=== PATIENT | female | born 1960 | race Caucasian/White ===

== ENCOUNTER 2016-07-10 16:24 | Inpatient (IN) | payer OTHER ==
[~2016-07-10] VITALS: Ht 157.5 cm; Wt 67.3 kg
[~2016-07-10 16:24] MED LIST: GABA-531 PO
[2016-07-10 17:28] LABS: BASOPHILS % (AUTO) 0.1 % (0.0-2.0); EOSINOPHILS # (AUTO) 0.03 K/uL (0.00-0.70); EOSINOPHILS % (AUTO) 0.33 % (1.0-6.0); HEMATOCRIT 43.7 % (36-46); MEAN CORPUSCULAR HEMOGLOBIN 32.6 pg (26.0-34.0); MEAN CORPUSCULAR HGB CONC 34.3 G/dL (31.0-37.0); MEAN CORPUSCULAR VOLUME 95 fL (80-100); MONOCYTES # (AUTO) 0.3 K/uL (0.1-1.0); MONOCYTES % (AUTO) 3.6 % (2.0-9.0); NEUTROPHILS # (AUTO) 6.4 K/uL (1.8-7.7); NEUTROPHILS % (AUTO) 83.1 % (40.0-70.0); RED CELL DISTRIBUTION WIDTH 15.2 % (11.5-14.5); WHITE BLOOD COUNT (AUTO) 7.7 K/uL (4.5-11.0)
[2016-07-10] MEDS ORDERED: SODIUM CHLORIDE 0.9% 1,000 ML IV ONE (17:30)
[2016-07-10 17:41] LABS: GLUCOSE,POINT OF CARE 147 MG/DL (70-110)
[2016-07-10 17:55] LABS: PLATELET COUNT (AUTO) 81 K/uL (150-450)
[2016-07-10] MEDS ORDERED: DILTIAZEM HCL 5 MG/ML 5 ML VIAL IVP ONE ×2 (18:00)
[2016-07-10 18:12] LABS: ANION GAP 19 mmol/L (8-16); CARBON DIOXIDE 23 mmol/L (22-29); CHLORIDE 95 mmol/L (98-107); CREATININE 0.68 mg/dL (0.60-1.30); GLOMERULAR FILTR. RATE CALC > 60 mL/min (>60); POTASSIUM 3.1 mmol/L (3.5-5.1); SODIUM SERUM 137 mmol/L (136-145); UREA NITROGEN, BLOOD 7 mg/dL (7-18)
[2016-07-10 18:17] LABS: ALANINE AMINOTRANSFERASE 61 U/L (12-78); ALBUMIN 3.8 g/dL (3.4-5.0); ASPARTATE AMINOTRANSFERASE 129 U/L (15-37); BILIRUBIN,TOTAL 1.2 mg/dL (0.1-1.0); TOTAL PROTEIN, SERUM 7.7 g/dL (6.4-8.2)
[2016-07-10] MEDS ORDERED: POTASSIUM CHLORIDE 20 MEQ ER TABLET PO ONE (18:30)
[2016-07-10] MEDS ORDERED: ONDANSETRON HCL 4 MG/2 ML VIAL IVP ONE (18:45)
[2016-07-10 19:45] LABS: APPEARANCE,URINE CLEAR (CLEAR); GLUCOSE, URINE (UA) NEGATIVE (NEGATIVE); KETONES,URINE 40 mg/dL (NEGATIVE); LEUKOCYTE ESTERASE ,URINE NEGATIVE (NEGATIVE); OCCULT BLOOD,URINE NEGATIVE (NEGATIVE); PH,URINE 6.5 (5.0-8.0); PROTEIN,URINE POS 1+ (NEGATIVE)
[2016-07-10] MEDS ORDERED: ASPIRIN 81 MG CHEWABLE TABLET PO ONE (19:45)
[2016-07-10] MEDS ORDERED: LABETALOL HCL 5 MG/ML 20 ML VIAL IVP ONE (19:45)
[2016-07-10 19:55] LABS: HYALINE CASTS, URINE 0-2 /LPF (None Seen)
[2016-07-10 19:56] LABS: RBC,URINE 0-2 /HPF (0-2); SQUAMOUS EPITHELIAL CELL,UR Moderate /LPF (None Seen); WBC,URINE 0-2 /HPF (0-5)
[2016-07-10] MEDS ORDERED: 0.9% SODIUM CHLORIDE 10 ML SYRINGE IVP PRN (20:15)
[2016-07-10] MEDS ORDERED: ONDANSETRON HCL 4 MG/2 ML VIAL IVP PRN (20:15)
[2016-07-10] MEDS ORDERED: ACETAMINOPHEN 325 MG TABLET PO PRN (20:15)
[2016-07-10 21:38] VITALS: BP 132/77
[2016-07-10] MEDS ORDERED: TEMAZEPAM 15 MG CAPSULE PO ONE (23:30)
[2016-07-10 23:56] VITALS: BP 115/70
[2016-07-11] MEDS ORDERED: ChlordiazePOXIDE HCL 25 MG CAPSULE PO PRN (02:45)
[2016-07-11] MEDS ORDERED: 0.9% SODIUM CHLORIDE 10 ML SYRINGE IVP PRN (03:00)
[2016-07-11] MEDS ORDERED: MAGNESIUM HYDROXIDE SUSPENSION 30 ML UDCUP PO PRN (03:00)
[2016-07-11] MEDS ORDERED: ACETAMINOPHEN 325 MG TABLET PO PRN (03:00)
[2016-07-11 04:45] VITALS: BP 121/72
[2016-07-11] MEDS: DOCUSATE SODIUM 100 MG CAPSULE PO SCH ×3 (05:02→20:27)
[2016-07-11 07:40] VITALS: BP 122/70
[2016-07-11 08:17] LABS: ANION GAP 10 mmol/L (8-16); CALCIUM, TOTAL 8.8 mg/dL (8.8-10.5); CARBON DIOXIDE 30 mmol/L (22-29); CHLORIDE 96 mmol/L (98-107); CREATININE 0.56 mg/dL (0.60-1.30); GLOMERULAR FILTR. RATE CALC > 60 mL/min (>60); POTASSIUM 3.2 mmol/L (3.5-5.1); SODIUM SERUM 136 mmol/L (136-145); UREA NITROGEN, BLOOD 9 mg/dL (7-18)
[2016-07-11] MEDS: GABAPENTIN 300 MG CAPSULE PO SCH (08:29)
[2016-07-11] MEDS: MULTIVITAMINS, THERAPEUTIC TABLET PO SCH (08:30)
[2016-07-11] MEDS: FOLIC ACID 1 MG TABLET PO SCH (08:30)
[2016-07-11] MEDS: THIAMINE HCL 100 MG TABLET PO SCH (08:30)
[2016-07-11] MEDS: PANTOPRAZOLE SODIUM 40 MG/VIAL IVP SCH (08:30)
[2016-07-11] MEDS ORDERED: POTASSIUM CHLORIDE 20 MEQ ER TABLET PO ONE ×2 (10:15→12:15)
[2016-07-11] MEDS: METOPROLOL SUCCINATE 50 MG ER TABLET PO SCH (10:34)
[2016-07-11] MEDS: OxyCODONE HCL/ACETAMINOPHEN 5-325 MG TABLET PO PRN ×3 (10:34→22:19)
[2016-07-11 11:34] VITALS: BP 115/85
[2016-07-11] MEDS: ONDANSETRON HCL 4 MG/2 ML VIAL IVP PRN ×2 (13:09→18:38)
[2016-07-11 15:40] VITALS: BP 135/85
[2016-07-11 19:38] VITALS: BP 116/70
[2016-07-11 23:35] VITALS: BP 121/72
[2016-07-12] MEDS ORDERED: HALOPERIDOL LACTATE 5 MG/ML VIAL ONE (04:15)
[2016-07-12] MEDS ORDERED: LORazepam 2 MG/ML VIAL IVP PRN (04:15)
[2016-07-12 04:16] VITALS: BP 127/61
[2016-07-12] MEDS: HALOPERIDOL LACTATE 5 MG/ML VIAL IM PRN ×2 (04:20→17:52)
[2016-07-12] MEDS ORDERED: ChlordiazePOXIDE HCL 10 MG CAPSULE PO ONE (04:30)
[2016-07-12] MEDS ORDERED: ChlordiazePOXIDE HCL 25 MG CAPSULE PO PRN (07:00)
[2016-07-12 08:31] VITALS: BP 131/86
[2016-07-12 08:35] LABS: BASOPHILS # (AUTO) 0.03 K/uL (0.00-0.20); BASOPHILS % (AUTO) 0.4 % (0.0-2.0); EOSINOPHILS # (AUTO) 0.14 K/uL (0.00-0.70); EOSINOPHILS % (AUTO) 2.05 % (1.0-6.0); HEMATOCRIT 41.7 % (36-46); HEMOGLOBIN 14.1 g/dL (12.0-16.0); LYMPHOCYTES # (AUTO) 1.5 K/uL (1.0-4.8); MEAN CORPUSCULAR HEMOGLOBIN 32.3 pg (26.0-34.0); MEAN CORPUSCULAR HGB CONC 33.8 G/dL (31.0-37.0); MEAN CORPUSCULAR VOLUME 96 fL (80-100); MONOCYTES # (AUTO) 0.4 K/uL (0.1-1.0); MONOCYTES % (AUTO) 5.9 % (2.0-9.0); NEUTROPHILS # (AUTO) 4.9 K/uL (1.8-7.7); NEUTROPHILS % (AUTO) 70.7 % (40.0-70.0); PLATELET COUNT (AUTO) 73 K/uL (150-450); RED BLOOD CELL COUNT(AUTO) 4.36 MIL/uL (4.00-5.20); RED CELL DISTRIBUTION WIDTH 15.5 % (11.5-14.5); WHITE BLOOD COUNT (AUTO) 6.9 K/uL (4.5-11.0)
[2016-07-12 09:00] LABS: ALANINE AMINOTRANSFERASE 53 U/L (12-78); ALBUMIN 3.5 g/dL (3.4-5.0); ANION GAP 12 mmol/L (8-16); ASPARTATE AMINOTRANSFERASE 95 U/L (15-37); CALCIUM, TOTAL 9.5 mg/dL (8.8-10.5); CARBON DIOXIDE 26 mmol/L (22-29); CHLORIDE 95 mmol/L (98-107); CREATININE 0.65 mg/dL (0.60-1.30); GLOMERULAR FILTR. RATE CALC > 60 mL/min (>60); POTASSIUM 3.8 mmol/L (3.5-5.1); SODIUM SERUM 133 mmol/L (136-145); TOTAL PROTEIN, SERUM 7.3 g/dL (6.4-8.2); UREA NITROGEN, BLOOD 7 mg/dL (7-18)
[2016-07-12] MEDS ORDERED: MAGNESIUM SULFATE 4 GM/WATER 100 ML IV ONE (09:45)
[2016-07-12] MEDS: ChlordiazePOXIDE HCL 25 MG CAPSULE PO SCH ×3 (10:33→16:33)
[2016-07-12] MEDS: GABAPENTIN 300 MG CAPSULE PO SCH ×2 (10:34→21:31)
[2016-07-12] MEDS: MULTIVITAMINS, THERAPEUTIC TABLET PO SCH (10:34)
[2016-07-12] MEDS: THIAMINE HCL 100 MG TABLET PO SCH (10:34)
[2016-07-12] MEDS: METOPROLOL SUCCINATE 50 MG ER TABLET PO SCH (10:34)
[2016-07-12] MEDS: DOCUSATE SODIUM 100 MG CAPSULE PO SCH ×2 (10:34→21:31)
[2016-07-12] MEDS: FOLIC ACID 1 MG TABLET PO SCH (10:34)
[2016-07-12 12:04] VITALS: BP 118/79
[2016-07-12] MEDS ORDERED: SODIUM CHLORIDE 0.9% 250 ML IV ONE (12:29)
[2016-07-12] MEDS: PANTOPRAZOLE SODIUM 40 MG/VIAL IVP SCH (12:42)
[2016-07-12 16:28] VITALS: BP 134/85
[2016-07-12] MEDS ORDERED: ChlordiazePOXIDE HCL 25 MG CAPSULE PO SCH (19:45)
[2016-07-12] MEDS ORDERED: MAGNESIUM OXIDE 400 MG TABLET PO ONE (21:30)
[2016-07-12] MEDS: LORazepam 2 MG/ML VIAL IM PRN (23:18)
[2016-07-13] MEDS ORDERED: HALOPERIDOL LACTATE 5 MG/ML VIAL IM PRN
[2016-07-13 00:38] VITALS: BP 130/82
[2016-07-13] MEDS ORDERED: ChlordiazePOXIDE HCL 10 MG CAPSULE PO PRN (04:23)
[2016-07-13] MEDS: LORazepam 2 MG/ML VIAL IM PRN (05:20)
[2016-07-13 08:07] VITALS: BP 106/65
[2016-07-13] MEDS: PANTOPRAZOLE SODIUM 40 MG/VIAL IVP SCH (09:00)
[2016-07-13] MEDS: GABAPENTIN 300 MG CAPSULE PO SCH ×2 (11:27→20:14)
[2016-07-13] MEDS: MAGNESIUM OXIDE 400 MG TABLET PO SCH (11:28)
[2016-07-13] MEDS: THIAMINE HCL 100 MG TABLET PO SCH (11:28)
[2016-07-13] MEDS: METOPROLOL SUCCINATE 50 MG ER TABLET PO SCH (11:28)
[2016-07-13] MEDS: MULTIVITAMINS, THERAPEUTIC TABLET PO SCH (11:28)
[2016-07-13] MEDS: ChlordiazePOXIDE HCL 25 MG CAPSULE PO SCH ×2 (11:28→17:32)
[2016-07-13] MEDS: FOLIC ACID 1 MG TABLET PO SCH (11:28)
[2016-07-13 11:29] VITALS: BP 115/76
[2016-07-13] MEDS: DOCUSATE SODIUM 100 MG CAPSULE PO SCH ×2 (11:29→20:14)
[2016-07-13] MEDS: ChlordiazePOXIDE HCL 10 MG CAPSULE PO PRN ×2 (14:47→20:15)
[2016-07-13] MEDS ORDERED: MAGNESIUM SULFATE 2 GM in DEXTROSE 5%-WATER 50 ML IV PRN (15:30)
[2016-07-13] MEDS ORDERED: MAGNESIUM SULFATE 4 GM/WATER 100 ML IV PRN (15:30)
[2016-07-13 17:10] VITALS: BP 104/74
[2016-07-13] MEDS: MAGNESIUM OXIDE 400 MG TABLET PO PRN ×2 (17:32→20:14)
[2016-07-13 19:39] VITALS: BP 122/70
[2016-07-13] MEDS: OxyCODONE HCL/ACETAMINOPHEN 5-325 MG TABLET PO PRN (21:09)
[2016-07-14] VITALS (8 sets, daily range): BP systolic 93–108; BP diastolic 58–73
[2016-07-14] MEDS: MAGNESIUM OXIDE 400 MG TABLET PO PRN ×4 (00:07→20:06)
[2016-07-14] MEDS: ChlordiazePOXIDE HCL 25 MG CAPSULE PO SCH (00:08)
[2016-07-14] MEDS ORDERED: ChlordiazePOXIDE HCL 10 MG CAPSULE PO PRN (07:00)
[2016-07-14 07:52] LABS: BASOPHILS # (AUTO) 0.02 K/uL (0.00-0.20); BASOPHILS % (AUTO) 0.3 % (0.0-2.0); EOSINOPHILS # (AUTO) 0.15 K/uL (0.00-0.70); EOSINOPHILS % (AUTO) 2.69 % (1.0-6.0); HEMATOCRIT 39.8 % (36-46); HEMOGLOBIN 13.7 g/dL (12.0-16.0); LYMPHOCYTES # (AUTO) 2.1 K/uL (1.0-4.8); MEAN CORPUSCULAR HEMOGLOBIN 32.9 pg (26.0-34.0); MEAN CORPUSCULAR HGB CONC 34.4 G/dL (31.0-37.0); MEAN CORPUSCULAR VOLUME 96 fL (80-100); MONOCYTES # (AUTO) 0.6 K/uL (0.1-1.0); MONOCYTES % (AUTO) 11.1 % (2.0-9.0); NEUTROPHILS # (AUTO) 2.6 K/uL (1.8-7.7); NEUTROPHILS % (AUTO) 47.9 % (40.0-70.0); PLATELET COUNT (AUTO) 104 K/uL (150-450); RED BLOOD CELL COUNT(AUTO) 4.16 MIL/uL (4.00-5.20); RED CELL DISTRIBUTION WIDTH 15.3 % (11.5-14.5); WHITE BLOOD COUNT (AUTO) 5.5 K/uL (4.5-11.0)
[2016-07-14 08:05] LABS: ALANINE AMINOTRANSFERASE 76 U/L (12-78); ALBUMIN 3.1 g/dL (3.4-5.0); ANION GAP 7 mmol/L (8-16); ASPARTATE AMINOTRANSFERASE 138 U/L (15-37); BILIRUBIN,TOTAL 0.6 mg/dL (0.1-1.0); CALCIUM, TOTAL 9.4 mg/dL (8.8-10.5); CARBON DIOXIDE 29 mmol/L (22-29); CHLORIDE 98 mmol/L (98-107); CREATININE 0.64 mg/dL (0.60-1.30); GLOMERULAR FILTR. RATE CALC > 60 mL/min (>60); SODIUM SERUM 134 mmol/L (136-145); TOTAL PROTEIN, SERUM 7.1 g/dL (6.4-8.2); UREA NITROGEN, BLOOD 8 mg/dL (7-18)
[2016-07-14] MEDS ORDERED: POTASSIUM CHL 10 MEQ/WATER 50 ML IV PRN (08:30)
[2016-07-14] MEDS ORDERED: POTASSIUM CHLORIDE 20 MEQ ER TABLET PO PRN (08:30)
[2016-07-14] MEDS ORDERED: ChlordiazePOXIDE HCL 25 MG CAPSULE PO SCH (09:00)
[2016-07-14] MEDS ORDERED: ChlordiazePOXIDE HCL 10 MG CAPSULE PO SCH (09:00)
[2016-07-14] MEDS: THIAMINE HCL 100 MG TABLET PO SCH (09:19)
[2016-07-14] MEDS: PANTOPRAZOLE SODIUM 40 MG/VIAL IVP SCH (09:19)
[2016-07-14] MEDS: METOPROLOL SUCCINATE 50 MG ER TABLET PO SCH (09:19)
[2016-07-14] MEDS: GABAPENTIN 300 MG CAPSULE PO SCH ×2 (09:19→20:06)
[2016-07-14] MEDS: MULTIVITAMINS, THERAPEUTIC TABLET PO SCH (09:19)
[2016-07-14] MEDS: FOLIC ACID 1 MG TABLET PO SCH (09:20)
[2016-07-14] MEDS: MAGNESIUM OXIDE 400 MG TABLET PO SCH (09:20)
[2016-07-14] MEDS: DOCUSATE SODIUM 100 MG CAPSULE PO SCH ×2 (09:20→20:06)
[2016-07-14] MEDS: OxyCODONE HCL/ACETAMINOPHEN 5-325 MG TABLET PO PRN (09:36)
[2016-07-15 00:09] VITALS: BP 92/66
[2016-07-15 04:37] VITALS: BP 96/64
[2016-07-15] MEDS ORDERED: ChlordiazePOXIDE HCL 10 MG CAPSULE PO PRN (07:00)
[2016-07-15 07:44] VITALS: BP 90/60
[2016-07-15 07:50] VITALS: BP 109/71
[2016-07-15] MEDS: MULTIVITAMINS, THERAPEUTIC TABLET PO SCH (08:58)
[2016-07-15] MEDS: GABAPENTIN 300 MG CAPSULE PO SCH (08:58)
[2016-07-15] MEDS: FOLIC ACID 1 MG TABLET PO SCH (08:58)
[2016-07-15] MEDS: PANTOPRAZOLE SODIUM 40 MG/VIAL IVP SCH (08:58)
[2016-07-15] MEDS: DOCUSATE SODIUM 100 MG CAPSULE PO SCH (08:58)
[2016-07-15] MEDS: THIAMINE HCL 100 MG TABLET PO SCH (08:59)
[2016-07-15] MEDS ORDERED: METOPROLOL SUCCINATE 25 MG ER TABLET PO SCH (09:00)
[2016-07-15] MEDS ORDERED: ChlordiazePOXIDE HCL 25 MG CAPSULE PO SCH (09:00)
[2016-07-15] MEDS: OxyCODONE HCL/ACETAMINOPHEN 5-325 MG TABLET PO PRN (09:00)
[2016-07-15] MEDS: MAGNESIUM OXIDE 400 MG TABLET PO SCH (10:35)
[2016-07-15] MEDS ORDERED: MULT-1192 PO (10:57)
[2016-07-15] MEDS ORDERED: OMEP20 PO (10:58)
[2016-07-15 13:41] VITALS: BP 96/68
[2016-07-17] MEDS ORDERED: ChlordiazePOXIDE HCL 25 MG CAPSULE PO SCH (09:00)
== END 2016-07-15 14:40 | disposition home or self-care (01) | DRG 775 ==
LOC: EMS 16:25 → OBSVTOIN 20:41 → INTOOBSV 20:41 → 5S 20:41
PROVIDERS: ADMIT Internal Medicine; ATTEND Internal Medicine
PROC: 4A00X4Z Measurement of Central Nervous Electrical Activity, External Approach (ICD-10-PCS; principal; 2016-07-12)
DX: F10.239 Alcohol dependence with withdrawal, unspecified (principal); E43 Unspecified severe protein-calorie malnutrition; G93.41 Metabolic encephalopathy; D69.6 Thrombocytopenia, unspecified; I95.9 Hypotension, unspecified; I48.91 Unspecified atrial fibrillation; E87.1 Hypo-osmolality and hyponatremia; E87.6 Hypokalemia; M54.9 Dorsalgia, unspecified; F32.9 Major depressive disorder, single episode, unspecified; K46.9 Unspecified abdominal hernia without obstruction or gangrene; S00.83XA Contusion of other part of head, initial encounter; F17.210 Nicotine dependence, cigarettes, uncomplicated; G40.909 Epilepsy, unspecified, not intractable, without status epilepticus; I69.398 Other sequelae of cerebral infarction; Z91.19 Patient's noncompliance with other medical treatment and regimen; Z53.29 Procedure and treatment not carried out because of patient's decision for other reasons; Z91.14 Patient's other noncompliance with medication regimen; W18.30XA Fall on same level, unspecified, initial encounter; Y93.89 Activity, other specified; Y92.89 Other specified places as the place of occurrence of the external cause; Y99.8 Other external cause status; Z79.899 Other long term (current) drug therapy; Z98.890 Other specified postprocedural states; Z78.1 Physical restraint status; Z71.6 Tobacco abuse counseling
CPT/HCPCS: 70450; 82948; 82962; 83735; 84132; 93005; 93306; 95816; 96361; 96374; 96375; 97161; 99285; C9113; G0480; J1630; J2060; J2405; J3475; J3490; J7050

== ENCOUNTER 2016-12-13 15:34 | Emergency (ER) | payer OTHER ==
[~2016-12-13] VITALS: Ht 162.6 cm; Wt 72.7 kg
[~2016-12-13 15:34] MED LIST changes: -GABA-531 PO; +MULT-1192 PO; +OMEP20 PO
[2016-12-13] MEDS ORDERED: MAGNESIUM SULFATE 2 GM, MVI, ADULT NO.1 WITH VIT K 10 ML, THIAMINE HCL 100 MG, FOLIC AC... IV ONE ×5 (16:45)
[2016-12-13] MEDS ORDERED: SODIUM CHLORIDE 0.9% 1,000 ML IV ONE ×3 (18:27→21:00)
[2016-12-13 21:01] VITALS: BP 96/62
== END 2016-12-13 22:24 | disposition home or self-care (01) ==
LOC: EMS 15:35
DX: I95.9 Hypotension, unspecified (principal); F10.229 Alcohol dependence with intoxication, unspecified; R55 Syncope and collapse; F17.210 Nicotine dependence, cigarettes, uncomplicated; Z86.73 Personal history of transient ischemic attack (TIA), and cerebral infarction without residual deficits; Y90.6 Blood alcohol level of 120-199 mg/100 ml
CPT/HCPCS: 36415; 80307; 93005; 96365; 96366; 99285; 99406; G0480; J3411; J3475; J3490 ×2; J7030

== ENCOUNTER 2017-07-05 10:44 | Emergency (ER) | payer OTHER ==
[~2017-07-05] VITALS: Ht 162.6 cm; Wt 74.5 kg
[2017-07-05 11:01] VITALS: BP 110/70
== END 2017-07-05 12:11 | disposition home or self-care (01) ==
LOC: EMS 10:45
DX: L03.011 Cellulitis of right finger (principal); F17.210 Nicotine dependence, cigarettes, uncomplicated
CPT/HCPCS: 99283

== ENCOUNTER 2018-06-19 12:26 | Emergency (ER) | payer MEDICAID, OTHER ==
[~2018-06-19] VITALS: Ht 162.6 cm; Wt 78.6 kg
[~2018-06-19 12:26] MED LIST changes: +ASCO500 PO; +DILT-39 PO; +FERR-89 PO; +FOLI1 PO; -MULT-1192 PO; +MULT-735 PO; -OMEP20 PO; +PANT40TA25 PO; +THIA100T67 PO
[2018-06-19] MEDS ORDERED: GABA-529 PO (12:58)
[2018-06-19] MEDS ORDERED: MAGNESIUM SULFATE 2 GM, MVI, ADULT NO.1 WITH VIT K 10 ML, THIAMINE HCL 100 MG, FOLIC AC... IV ONE ×5 (14:15)
[2018-06-19 15:02] LABS: AMPHET/METH SCREEN,URINE NEGATIVE (NEGATIVE); BARBITURATE SCREEN, URINE NEGATIVE (NEGATIVE); BENZODIAZEPINES SCREEN,URINE NEGATIVE (NEGATIVE); CANNABINOID SCREEN,URINE NEGATIVE (NEGATIVE); COCAINE SCREEN,URINE NEGATIVE (NEGATIVE); METHADONE SCREEN, URINE NEGATIVE (NEGATIVE); OPIATE SCREEN,URINE NEGATIVE (NEGATIVE)
[2018-06-19 15:08] LABS: PHENCYCLIDINE SCREEN,URINE NEGATIVE (NEGATIVE)
[2018-06-19 15:13] LABS: BASOPHILS % (AUTO) 0.3 % (0.0-2.0); EOSINOPHILS % (AUTO) 0.1 % (1.0-6.0); HEMATOCRIT 29.8 % (36-46); HEMOGLOBIN 9.5 g/dL (12.0-16.0); LYMPHOCYTES # (AUTO) 1.4 K/uL (1.0-4.8); LYMPHOCYTES % (AUTO) 10.5 % (22.0-44.0); MEAN CORPUSCULAR HGB CONC 31.8 G/dL (31.0-37.0); MEAN CORPUSCULAR VOLUME 72 fL (80-100); MONOCYTES % (AUTO) 7.6 % (2.0-9.0); NEUTROPHILS # (AUTO) 11.1 K/uL (1.8-7.7); NEUTROPHILS % (AUTO) 81.5 % (40.0-70.0); PLATELET COUNT (AUTO) 450 K/uL (150-450); RED BLOOD CELL COUNT(AUTO) 4.13 MIL/uL (4.00-5.20); RED CELL DISTRIBUTION WIDTH 19.8 % (11.5-14.5)
[2018-06-19 15:26] LABS: APPEARANCE,URINE CLEAR (CLEAR); BILIRUBIN,URINE NEGATIVE (NEGATIVE); GLUCOSE, URINE (UA) NEGATIVE (NEGATIVE); KETONES,URINE NEGATIVE (NEGATIVE); LEUKOCYTE ESTERASE ,URINE SMALL (NEGATIVE); NITRATE,URINE NEGATIVE (NEGATIVE); OCCULT BLOOD,URINE NEGATIVE (NEGATIVE); PROTEIN,URINE NEGATIVE (NEGATIVE); UROBILINOGEN,URINE 0.2 mg/dL (<=1.0)
[2018-06-19 15:31] LABS: TROPONIN I < 0.02 ng/mL (0.00-0.05)
[2018-06-19 15:41] LABS: AMMONIA < 10 umol/L (11-32)
[2018-06-19 15:50] LABS: ANION GAP 10 mmol/L (8-16); CALCIUM, TOTAL 9.1 mg/dL (8.8-10.5); CARBON DIOXIDE 28 mmol/L (22-29); CHLORIDE 93 mmol/L (98-107); CREATININE 0.67 mg/dL (0.60-1.30); GLOMERULAR FILTR. RATE CALC > 60 mL/min (>60); GLUCOSE,RANDOM 112 mg/dL (70-110); POTASSIUM 3.1 mmol/L (3.5-5.1); SODIUM SERUM 131 mmol/L (136-145); UREA NITROGEN, BLOOD 9 mg/dL (7-18)
[2018-06-19 15:56] LABS: BACTERIA,URINE Moderate /HPF (None Seen); SQUAMOUS EPITHELIAL CELL,UR Moderate /LPF (None Seen)
[2018-06-19 16:14] LABS: ALANINE AMINOTRANSFERASE 22 U/L (12-78); ALBUMIN 2.6 g/dL (3.4-5.0); ALKALINE PHOSPHATASE 59 U/L (46-116); ASPARTATE AMINOTRANSFERASE 18 U/L (15-37); BILIRUBIN,TOTAL 0.4 mg/dL (0.1-1.0); CREATINE KINASE, TOTAL ONLY 90 U/L (26-192); TOTAL PROTEIN, SERUM 7.1 g/dL (6.4-8.2)
[2018-06-19 16:54] LABS: GLUCOSE,POINT OF CARE 152 MG/DL (70-110)
[2018-06-19] MEDS ORDERED: CEPHALEXIN MONOHYDRATE 500 MG CAPSULE PO ONE (17:45)
[2018-06-19] MEDS ORDERED: POTASSIUM CHLORIDE 20 MEQ ER TABLET PO ONE (17:45)
[2018-06-19] MEDS ORDERED: LORazepam 1 MG TABLET PO ONE (18:00)
[2018-06-19 18:25] VITALS: BP 115/67
== END 2018-06-19 19:33 | disposition home or self-care (01) ==
LOC: EMS 12:27
DX: E87.6 Hypokalemia (principal); N39.0 Urinary tract infection, site not specified; F10.20 Alcohol dependence, uncomplicated; F17.210 Nicotine dependence, cigarettes, uncomplicated; Y90.0 Blood alcohol level of less than 20 mg/100 ml
CPT/HCPCS: 36415; 70450; 71045; 80053; 80307; 81001; 82140; 82550; 82962; 84484; 85025; 87086; 87186; 93005; 96365; 96366; 99285; G0480; J3411; J3475; J3490 ×2; J7030